=== PATIENT | female | born 1990 | race African-American/Black ===

== ENCOUNTER 2017-01-08 14:26 | Emergency (ER) | payer MEDICAID ==
[~2017-01-08] VITALS: Ht 172.7 cm; Wt 74.8 kg
[2017-01-08 14:52] VITALS: BP 140/68
[2017-01-08] MEDS ORDERED: KETOROLAC TROMETH 60MG/2ML VIAL IM ONE (15:45)
== END 2017-01-08 16:54 | disposition home or self-care (01) ==
LOC: ER 15:12
DX: S76.011A Strain of muscle, fascia and tendon of right hip, initial encounter (principal); S29.019A Strain of muscle and tendon of unspecified wall of thorax, initial encounter; Z88.8 Allergy status to other drugs, medicaments and biological substances; Z91.013 Allergy to seafood; V49.59XA Passenger injured in collision with other motor vehicles in traffic accident, initial encounter; Y93.89 Activity, other specified; Y99.8 Other external cause status; Y92.410 Unspecified street and highway as the place of occurrence of the external cause
CPT/HCPCS: 71101; 96372; 99284; J1885